=== PATIENT | female | born 1995 | race African-American/Black ===

== ENCOUNTER 2022-09-18 08:58 | Emergency (ER) | payer MEDICAID ==
[~2022-09-18] VITALS: Ht 170.2 cm; Wt 63.6 kg
[2022-09-18 09:02] VITALS: TEMP 98.7; O2SAT 100
[2022-09-18 09:30] VITALS: BP 153/110; PULSE 94; RESP 16
[2022-09-18] MEDS ORDERED: DIPHENHYDRAMINE 50MG CAPSULE PO ONE (09:30)
[2022-09-18] MEDS ORDERED: IBUPROFEN 600MG TABLET PO ONE (09:30)
[2022-09-18] MEDS ORDERED: FLUT30CR TP (09:31)
[2022-09-18] MEDS: DIPHENHYDRAMINE 25MG CAPSULE PO NR ×2 (09:45→09:51)
== END 2022-09-18 09:52 | disposition home or self-care (01) ==
LOC: ER 08:58
DX: L42 Pityriasis rosea (principal); R21 Rash and other nonspecific skin eruption; F12.10 Cannabis abuse, uncomplicated
CPT/HCPCS: 99281; 99283; Q0163

== ENCOUNTER 2025-01-08 23:11 | Emergency (ER) | payer MEDICAID ==
[~2025-01-08] VITALS: Ht 170.2 cm; Wt 81.4 kg
[~2025-01-08 23:11] MED LIST: FLUT30CR TP; LEVO-65 MT
[2025-01-08 23:21] VITALS: O2SAT 98
[2025-01-08] MEDS: ACETAMINOPHEN 500MG TABLET PO ONE (23:45)
[2025-01-08] MEDS ORDERED: ONDANSETRON HCL 4MG/2ML INJ IV ONE (23:45)
[2025-01-09 00:32] LABS: CLARITY URINE CLOUDY (CLEAR); COLOR URINE DARK YELLOW (YELLOW); GLUCOSE URINE NEGATIVE (NEGATIVE); KETONES URINE 2+ (NEGATIVE); LEUKOCYTE ESTERASE URINE TRACE (NEGATIVE); NITRITE URINE NEGATIVE (NEGATIVE); OCCULT BLOOD URINE NEGATIVE (NEGATIVE); PH URINE 5.5 (4.5-8.0); PROTEIN URINE 1+ (NEGATIVE); SPECIFIC GRAVITY URINE 1.033 (1.005-1.030); UROBILINOGEN URINE 1.0 E.U./dL (0.2-1.0)
[2025-01-09 00:38] LABS: BACTERIA URINE 2+; RBC URINE NONE SEEN /hpf (0-2); SQUAMOUS EPITHELIAL CELL URINE RARE /lpf (RARE/1+); WBC URINE 0-2 /hpf (0-2)
[2025-01-09 00:40] LABS: BASOPHILS % 0.3 % (0.0-2.0); EOSINOPHILS % 0.3 % (0.0-5.0); HEMATOCRIT. 40.0 % (36.0-48.0); HEMOGLOBIN. 13.3 g/dL (12.0-16.0); LYMPHOCYTES % 18.5 % (20.0-50.0); MEAN PLATELET VOLUME 9.4 fl (7.4-10.4); MONOCYTES % 8.0 % (2.0-8.0); NEUTROPHILS % 72.9 % (40.0-76.0); PLATELET 240 x1000/uL (130-400); RED BLOOD CELL COUNT 4.35 mill/uL (4.2-5.4); RED CELL DISTRIBUTION WIDTH 13.4 % (11.6-14.6)
[2025-01-09 00:41] VITALS: TEMP 37; O2SAT 98
[2025-01-09] MEDS: SODIUM CHLORIDE 0.9% 1,000 ML IV ONE (00:43)
[2025-01-09 00:48] VITALS: BP 105/72; PULSE 96; RESP 20
[2025-01-09] MEDS: METOCLOPRAMIDE HCL 10MG/2ML VIAL IV ONE (00:48)
[2025-01-09] MEDS: KETOROLAC 15MG/ML VIAL IV ONE (00:48)
[2025-01-09 00:58] LABS: *AMPHETAMINES SCREEN URINE NEGATIVE (NEGATIVE); *BARBITURATES SCREEN URINE NEGATIVE (NEGATIVE); *BENZODIAZEPINES SCREEN URINE NEGATIVE (NEGATIVE); *COCAINE SCREEN URINE NEGATIVE (NEGATIVE); METHADONE URINE SCREEN NEGATIVE (NEGATIVE)
[2025-01-09 00:59] LABS: CANNABINOID URINE SCREEN PRESUMPTIVE POSITIVE (NEGATIVE); ECSTASY MDMA SCREEN URINE NEGATIVE (NEGATIVE); OPIATES URINE SCREEN NEGATIVE (NEGATIVE); PHENCYCLIDINE URINE SCREEN NEGATIVE (NEGATIVE)
[2025-01-09 01:00] LABS: CREATININE 0.8 mg/dL (0.6-1.0); UREA NITROGEN BLOOD 8 mg/dL (9-23)
[2025-01-09 01:02] LABS: ASPARTATE AMINOTRANSFERASE 11 IU/L (<34); BILIRUBIN DIRECT 0.2 mg/dL (<=3.0)
[2025-01-09 01:03] LABS: BILIRUBIN TOTAL 0.6 mg/dL (0.1-1.0); PROTEIN TOTAL 7.6 g/dL (6.0-8.3)
[2025-01-09 01:07] LABS: HCG SCREEN NEGATIVE
[2025-01-09] MEDS ORDERED: METO-293 MT (01:08)
[2025-01-09] MEDS ORDERED: IBUP-2030 MT (01:08)
[2025-01-09] MEDS: POTASSIUM CHLORIDE 20MEQ/PACKET PO ONE (01:15)
[2025-01-09] MEDS: LORAZEPAM 1MG TABLET PO ONE (01:15)
[2025-01-09 01:19] LABS: B-HCG QUANTITATIVE < 1 mIU/mL (<6)
== END 2025-01-09 01:46 | disposition home or self-care (01) ==
LOC: ER 23:51 → CMPBEDREQ 01-09 07:47
DX: R11.2 Nausea with vomiting, unspecified (principal); E87.6 Hypokalemia; F12.90 Cannabis use, unspecified, uncomplicated; N89.8 Other specified noninflammatory disorders of vagina; F41.9 Anxiety disorder, unspecified; Z79.899 Other long term (current) drug therapy
CPT/HCPCS: 36415; 99284; 80076; 80305; 80048; 81003; 80320; 84703; 84702; 83690; 85025; 96361; 96374; 96375; J1885; J2765; J7030; G0480

== ENCOUNTER 2025-01-14 09:40 | Emergency (ER) | payer MEDICAID ==
[~2025-01-14] VITALS: Ht 170.2 cm; Wt 82.0 kg
[~2025-01-14 09:40] MED LIST changes: +IBUP-2030 MT; +METO-293 MT
[2025-01-14 09:58] VITALS: O2SAT 97
[2025-01-14 10:28] LABS: BASOPHILS % 0.8 % (0.0-2.0); EOSINOPHILS % 0.4 % (0.0-5.0); HEMATOCRIT. 41.1 % (36.0-48.0); HEMOGLOBIN. 13.7 g/dL (12.0-16.0); LYMPHOCYTES % 19.0 % (20.0-50.0); MEAN PLATELET VOLUME 9.3 fl (7.4-10.4); MONOCYTES % 6.7 % (2.0-8.0); NEUTROPHILS % 73.1 % (40.0-76.0); PLATELET 230 x1000/uL (130-400); RED BLOOD CELL COUNT 4.45 mill/uL (4.2-5.4); RED CELL DISTRIBUTION WIDTH 13.6 % (11.6-14.6)
[2025-01-14 10:43] LABS: CREATININE 0.7 mg/dL (0.6-1.0); UREA NITROGEN BLOOD 5 mg/dL (9-23)
[2025-01-14 10:46] LABS: ASPARTATE AMINOTRANSFERASE 11 IU/L (<34); BILIRUBIN DIRECT 0.2 mg/dL (<=3.0); BILIRUBIN TOTAL 0.7 mg/dL (0.1-1.0); PROTEIN TOTAL 7.9 g/dL (6.0-8.3)
[2025-01-14 10:49] LABS: HCG SCREEN NEGATIVE
[2025-01-14] MEDS: FAMOTIDINE 20MG TABLET PO ONE (11:02)
[2025-01-14] MEDS: MAGNESIUM/ALUMINUM HYDROXIDE/SIMETHICONE 30ML UDC PO ONE (11:02)
[2025-01-14] MEDS: DIAZEPAM 5 MG TABLET PO ONE (11:03)
[2025-01-14] MEDS: ONDANSETRON 4MG ODT PO ONE (11:03)
[2025-01-14] MEDS: ACETAMINOPHEN 325MG TABLET PO ONE (11:03)
[2025-01-14] MEDS: METOCLOPRAMIDE HCL 10MG TABLET PO ONE (11:23)
[2025-01-14] MEDS ORDERED: MAG-55 MT (12:03)
[2025-01-14] MEDS ORDERED: FAMO-135 MT (12:03)
[2025-01-14] MEDS ORDERED: METO5TAB86 MT (12:03)
[2025-01-14] MEDS ORDERED: METO-293 MT (12:05)
[2025-01-14 12:16] VITALS: BP 119/82; PULSE 99; RESP 16; TEMP 36.9; O2SAT 98
== END 2025-01-14 12:20 | disposition home or self-care (01) ==
LOC: ER 09:40
DX: R07.89 Other chest pain (principal); R10.13 Epigastric pain; R11.2 Nausea with vomiting, unspecified; F41.9 Anxiety disorder, unspecified; F12.90 Cannabis use, unspecified, uncomplicated; Z79.899 Other long term (current) drug therapy
CPT/HCPCS: 99285; 76705; 71045; 80076; 80048; 84703; 83690; 85025; 36415; 93005; J8597; Q0162

== ENCOUNTER 2025-01-26 22:57 | Emergency (ER) | payer MEDICAID ==
[~2025-01-26] VITALS: Ht 170.2 cm; Wt 79.2 kg
[~2025-01-26 22:57] MED LIST changes: +FAMO-135 MT; +MAG-55 MT; +METO5TAB86 MT
[2025-01-26 23:05] VITALS: O2SAT 99
[2025-01-26 23:10] VITALS: TEMP 36.8; O2SAT 97
[2025-01-27 00:02] LABS: BASOPHILS % 0.5 % (0.0-2.0); EOSINOPHILS % 0.1 % (0.0-5.0); HEMATOCRIT. 39.5 % (36.0-48.0); HEMOGLOBIN. 13.0 g/dL (12.0-16.0); LYMPHOCYTES % 15.0 % (20.0-50.0); MONOCYTES % 4.6 % (2.0-8.0); NEUTROPHILS % 79.8 % (40.0-76.0); RED BLOOD CELL COUNT 4.26 mill/uL (4.2-5.4); RED CELL DISTRIBUTION WIDTH 13.2 % (11.6-14.6)
[2025-01-27 00:24] VITALS: BP 110/73; PULSE 97; RESP 20
[2025-01-27 00:24] LABS: CLARITY URINE CLOUDY (CLEAR); COLOR URINE YELLOW (YELLOW); GLUCOSE URINE NEGATIVE (NEGATIVE); KETONES URINE TRACE (NEGATIVE); LEUKOCYTE ESTERASE URINE TRACE (NEGATIVE); NITRITE URINE NEGATIVE (NEGATIVE); OCCULT BLOOD URINE NEGATIVE (NEGATIVE); PH URINE 6.5 (4.5-8.0); PROTEIN URINE NEGATIVE (NEGATIVE); SPECIFIC GRAVITY URINE 1.013 (1.005-1.030); UROBILINOGEN URINE 1.0 E.U./dL (0.2-1.0)
[2025-01-27] MEDS: ONDANSETRON 4MG ODT PO ONE (00:24)
[2025-01-27] MEDS: KETOROLAC 15MG/ML VIAL IM ONE (00:24)
[2025-01-27 00:26] LABS: MEAN PLATELET VOLUME 10.3 fl (7.4-10.4)
[2025-01-27 00:27] LABS: PLATELET 249 x1000/uL (130-400)
[2025-01-27 00:28] LABS: CREATININE 0.7 mg/dL (0.6-1.0); HCG SCREEN NEGATIVE; UREA NITROGEN BLOOD < 5 mg/dL (9-23)
[2025-01-27 01:00] LABS: BACTERIA URINE 2+; RBC URINE NONE SEEN /hpf (0-2); SQUAMOUS EPITHELIAL CELL URINE 2+ /lpf (RARE/1+)
[2025-01-27 02:16] LABS: ASPARTATE AMINOTRANSFERASE 9 IU/L (<34); BILIRUBIN DIRECT 0.1 mg/dL (<=3.0); BILIRUBIN TOTAL 0.4 mg/dL (0.1-1.0); PROTEIN TOTAL 7.2 g/dL (6.0-8.3)
== END 2025-01-27 02:38 | disposition left against medical advice (07) ==
LOC: ER 22:57
DX: R07.89 Other chest pain (principal); R11.10 Vomiting, unspecified; F12.90 Cannabis use, unspecified, uncomplicated
CPT/HCPCS: 99285; 71045; 80076; 80048; 81003; 81025; 84703; 85025; 36415; 93005; 96372; J1885; Q0162

== ENCOUNTER 2025-02-23 14:36 | Emergency (ER) | payer MEDICAID ==
[~2025-02-23] VITALS: Ht 170.2 cm; Wt 78.0 kg
[~2025-02-23 14:36] MED LIST changes: -METO5TAB86 MT
[2025-02-23 14:38] VITALS: O2SAT 100
[2025-02-23 14:40] VITALS: BP 113/79; PULSE 85; RESP 18; TEMP 36.7; O2SAT 97
== END 2025-02-23 18:23 | disposition left against medical advice (07) ==
LOC: ER 14:36
DX: R11.0 Nausea (principal)
CPT/HCPCS: 99281